=== PATIENT | male | born 1990 | race Two or more races ===

== ENCOUNTER 2016-07-27 17:53 | Emergency (ER) | payer BC ==
[~2016-07-27] VITALS: Ht 177.8 cm; Wt 76.2 kg
[2016-07-27 19:20] VITALS: BP 129/58
[2016-07-27] MEDS ORDERED: DIPHTH,PERTUSS(ACELL),TET TOX 0.5 ML DISP.SYRIN. VAX IM ONE (19:45)
[2016-07-27] MEDS ORDERED: CIPR500T94 PO (20:29)
[2016-07-27] MEDS ORDERED: NAPR500T8 PO (20:29)
--- NOTE | 2016-07-27 20:29 | PHYS DOC ---
Past Medical History Past Medical History: No Pertinent History Past Surgical History: No Surgical History Alcohol Use: Occasionally Drug Use: Marijuana Adult General Chief Complaint Chief Complaint: PUNCTURE WOUND HPI HPI Patient is a 25 year old male who presents with puncture wound on the left foot , patient states he stepped on a nail with work boots on at work Review of Systems Review of Systems Constitutional: Denies fever or chills [] Eyes: Denies change in visual acuity, redness, or eye pain [] Musculoskeletal: Denies back pain or joint pain [] Integument: Puncture wound to the left foot Neurologic: Denies headache, focal weakness or sensory changes [] Endocrine: Denies polyuria or polydipsia [] Current Medications Current Medications Current Medications Medications (Trade) Dose Ordered Sig/Jovanna Start Time Stop Time Status Last Admin Dose Admin Diphtheria/ Tetanus/Acell Pertussis (Boostrix) 0.5 ml ONCE ONCE 07/27/16 19:45 07/27/16 19:46 DC 07/27/16 20:05 0.5 ML Allergies Allergies Allergies Coded Allergies Type Severity Reaction Last Updated Verified No Known Drug Allergies 03/03/15 No Physical Exam Physical Exam Constitutional: Well developed, well nourished, no acute distress, non-toxic appearance. [] HENT: Normocephalic, atraumatic, bilateral external ears normal, oropharynx moist, no oral exudates, nose normal. [] Skin: Left foot distal second metatarsal with a tiny puncture wound approximately 0.2 x 0.2 cm with no redness or drainage. Neurovascular exam normal on the left foot. Back: No tenderness, no CVA tenderness. [] Extremities: No tenderness, no cyanosis, no clubbing, ROM intact, no edema. [] Neurologic: Alert and oriented X 3, normal motor function, normal sensory function, no focal deficits noted. [] Psychologic: Affect normal, judgement normal, mood normal. [] Current Patient Data Vital Signs Vital Signs Date Time Temp Pulse Resp B/P (MAP) Pulse Ox O2 Delivery O2 Flow Rate FiO2 07/27/16 19:20 98.1 55 16 129/58 (81) 99 Room Air 98.1 EKG EKG [] Radiology/Procedures Radiology/Procedures [] Course & Med Decision Making Course & Med Decision Making Pertinent Labs and Imaging studies reviewed. (See chart for details) Patient is in the ED with puncture wound to the left foot after stepping on a nail with boots on. Given tetanus in the ED. Discharged with Cipro. Provided return precautions. Discharged in stable condition. Alexandra Disclaimer Alexandra Disclaimer This electronic medical record was generated, in whole or in part, using a voice recognition dictation system. Departure Departure Impression: Primary Impression: Puncture wound of left foot Disposition: HOME, SELF-CARE Condition: STABLE Referrals: NO PCP (PCP) Follow-up with your doctor in 1-2 weeks Patient Instructions: Puncture Wound, [id number] Additional Instructions: You were seen for puncture wound on the left foot. Keep the area clean and dry. Complete your antibiotics. Come back to the ED for develop a fever, increased redness, odor drainage, or warmth over the puncture wound site. Follow-up with your doctor in 1-2 weeks. Scripts Naproxen (NAPROXEN) 500 Mg Tablet.dr 1 TAB PO BID, #60 TAB 1 Refill Prov: GEORGINA AUGUSTE APRN 07/27/16 Ciprofloxacin Hcl (CIPRO) 500 Mg Tablet 1 TAB PO BID, #20 TAB Prov: GEORGINA AUGUSTE APRN 07/27/16 Problem Qualifiers Primary Impression: Puncture wound of left foot Encounter type: initial encounter Qualified Codes: S91.332A - Puncture wound without foreign body, left foot, initial encounter GEORGINA AUGUSTE APRN July 27, 2016 20:29
== END 2016-07-27 20:45 | disposition home or self-care (01) ==
LOC: ER 17:53
DX: S91.332A Puncture wound without foreign body, left foot, initial encounter (principal); F12.10 Cannabis abuse, uncomplicated; W45.0XXA Nail entering through skin, initial encounter; Y93.89 Activity, other specified; Y99.8 Other external cause status; Y92.89 Other specified places as the place of occurrence of the external cause
CPT/HCPCS: 90471; 90715; 99283-25